=== PATIENT | female | born 1975 | race Caucasian/White ===

== ENCOUNTER 2023-06-20 17:01 | Inpatient (IN) ==
--- NOTE | 2023-06-20 17:22 | ED Triage Note ---
Date of Service June 20, 2023 Provider in Triage Author: Les Solo History of Present Illness This patient was briefly evaluated while in triage. An abbreviated physical exam was performed. This patient is a 48-year-old Female who presents to the ED for evaluation of abdominal pain. Concerned may have a gallbladder issue. Vomiting over the past few days. Pain epigastric region. Notes dark colored urine as well. Pain with a deep breath or sneezing. Physical Exam GENERAL: 48 year old female. In no acute distress. SKIN: No lesions or rashes. HEART: Regular rate and rhythm. LUNGS: Clear to auscultation. ABDOMEN: Bowel sounds normoactive. No guarding or rigidity. No tenderness of palpation. NEURO: Alert and oriented. No deficits. MUSCULOSKELETAL: No deformities to inspection of the extremities. PSYCH: Patient is pleasant and answers all questions appropriately. Initial orders for labs and / or imaging were placed and patient was placed in the waiting area until a bed is available. Please see further documentation for the full ED course.
[2023-06-20 18:21] LABS: Appearance Urine Clear (Clear); Bacteria Urine Automated Negative (Negative); Bilirubin Urine Negative (Negative); Blood Urine Negative (Negative); Cast Urine Automated 0 /lpf (0-5); Color Urine Yellow; Glucose Urine UA Negative (Negative); Ketones Urine Negative (Negative); Leukocyte Esterase Urine Trace (Negative); Nitrite Urine Negative (Negative); Protein Urine Negative (Negative); RBC Urine Automated 0-4 /hpf (0-4); Specific Gravity Urine 1.005 (1.000-1.030); Urobilinogen Urine Negative (Negative)
[2023-06-20 18:34] LABS: Basophils # (auto) 0.08 K/uL (0.00-0.20); Basophils % (auto) 0.8 %; Eosinophils # (auto) 0.26 K/uL (0.00-0.50); Eosinophils % (auto) 2.5 %; Hemoglobin 14.6 g/dl (12.0-16.0); Immature Granulocytes # (auto) 0.05 K/uL (0.01-0.20); Immature Granulocytes % (auto) 0.5 %; Lymphocytes # (auto) 3.77 K/uL (1.20-3.40); Lymphocytes % (auto) 35.9 %; Mean Corpuscular Hemoglobin 31.1 pg (25.0-34.0); Mean Corpuscular Hgb Conc 34.8 g/dL (32.0-36.0); Mean Corpuscular Volume 89.6 fL (80.0-100.0); Mean Platelet Volume 10.6 fL (9.4-12.4); Monocytes # (auto) 1.11 K/uL (0.11-0.59); Monocytes % (auto) 10.6 %; Neutrophils # (auto) 5.23 K/uL (1.40-6.50); Neutrophils % (auto) 49.7 %; Platelet Count 417 K/uL (130-400); RDW Coefficient of Variation 12.5 % (11.5-14.5); RDW Standard Deviation 40.8 fL (36.4-46.3); Red Blood Count 4.69 M/uL (4.20-5.40)
[2023-06-20 18:51] LABS: Alanine Aminotransferase 151 U/L (7-52); Albumin Globulin Ratio 1.2 (0.9-2); Albumin Level 4.2 gm/dl (3.4-5.0); Alkaline Phosphatase 178 U/L (34-104); Anion Gap 7 (3-11); Aspartate Aminotransferase 64 U/L (13-39); BUN Creatinine Ratio 15.7 (10-20); Blood Urea Nitrogen 11 mg/dl (6-23); Calcium 9.7 mg/dl (8.6-10.3); Carbon Dioxide 26 mmol/L (21-32); Chloride 104 mmol/L (98-107); Creatinine Clr Calc Pharmacy 112.2 ml/min; Est GFR (African American) 117.9 ml/min; Est GFR (Non-African American) 101.7 ml/min; Globulin 3.6 gm/dl (2.5-4.0); Glucose 92 mg/dl (70-99(Fasting)); Lipase 114 U/L (11-82); Potassium 4.1 mmol/L (3.5-5.1); Sodium 137 mmol/L (136-145); Total Protein 7.8 gm/dl (6.0-8.3)
[2023-06-20 18:52] LABS: Pregnancy Test, Serum Negative (Negative)
[2023-06-20 18:56] LABS: Troponin I High Sensitivity < 2.3 pg/ml (0-14)
--- NOTE | 2023-06-20 19:16 | XRay Report ---
SINGLE VIEW CHEST CLINICAL HISTORY: Epigastric abdominal pain. FINDINGS: A PA chest radiograph is obtained. No prior studies are available for comparison at the tana e of dictation. The cardiomediastinal silhouette is unremarkable. The lungs and pleural spaces are cl ear. No pneumothorax is seen. The bony thorax is grossly intact. IMPRESSION: No active disease in the chest. ACT 112: Negative or not required by law. Electronically signed by: Francis Song M.D. 06/20/2023 7:15 PM
--- NOTE | 2023-06-20 19:27 | Ultrasound Report ---
ULTRASOUND RIGHT UPPER QUADRANT ABDOMEN CLINICAL HISTORY: Epigastric abdominal pain. COMPARISON STUDY: No priors TECHNIQUE: Real-time, grayscale, and color flow sonography of the right upper quadrant of the abdomen was performed. Images are reviewed in the transverse and longitudinal planes. FINDINGS: Liver: The liver is normal in size and echotexture. There is no intrahepatic biliary ductal dilatatio n. The main portal vein is patent. Gallbladder: The gallbladder is mildly distended and filled with stones/sludge. The gallbladder wall appears thickened and mildly edematous measuring up to 4 mm. No pericholecystic fluid is seen. A sono graphic Matos's sign is reportedly absent. The common bile duct measures up to 0.2 cm in diameter. Pancreas: Visualized portions of the pancreatic head and body are normal in appearance. The splenic v ein is patent. Right kidney: Survey images of the right kidney demonstrate normal size and echotexture. There is no hydronephrosis. Ascites: None. IMPRESSION: Cholelithiasis and biliary sludge with findings suspicious for acute cholecystitis. Clini raul and laboratory correlation will be required. A nuclear hepatobiliary scan would be confirmatory ACT 112: Negative or not required by law. Electronically signed by: Francis Song M.D. 06/20/2023 7:25 PM
--- NOTE | 2023-06-20 20:10 | Emergency Department Note ---
ED Provider Note History of Present Illness Chief Complaint: Abdominal Pain Stated Complaint: VOMITING, ABDOMINAL PAIN, URINE ORANGE Time Seen by Provider: 06/20/23 19:15 This patient is a 48-year-old female who presents to the emergency department for evaluation of abdominal pain and vomiting. Her symptoms started 4 days ago. At that time, she had eaten haluski and then ice cream and afterward developed nausea and vomiting. The next day she again developed vomiting after eating something. She states yesterday, she had a Vincent and fries and developed symptoms after that. Symptoms are slightly more mild now but she states she has had vomiting and abdominal pain anytime she eats for the past 4 days. She reports a very strong family history of gallbladder disease and was concerned about this. Home Medications Medication Instructions Recorded Confirmed Type oxycodone 5 mg tablet 5 - 10 mg (1 - 2 x 5 mg) PO 06/22/23 Rx .[id number] PRN pain #15 tabs Allergies Allergy/AdvReac Type Severity Reaction Status Date / Time shellfish derived Allergy Severe HIVES, Unverified 06/20/23 20:40 VOMITING AND DIARRHEA latex Allergy Intermediate Rash Unverified 06/20/23 20:40 Past Med/Surg History Surgical History (Updated 06/22/23 @ 11:39 by Harper Lewis RN) Hx laparoscopic cholecystectomy (06/21/23) Laparoscopic Cholecystectomy - Melony Abdalla DO Social History Smoking Status: Former smoker Tobacco Type: Cigarettes and E-cigarettes / Vaping Second Hand Exposure: No; Do You Dip or Chew Tobacco: No; Hx Alcohol Use: Yes Alcohol type: wine Hx Substance Use: Yes Preferred Language: Urdu Communication Ability: Effective Visual Impairment: No Limitations Women[employer] 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 Feels Safe at Home: Yes Assistive Devices: None Physical Exam Vital Signs Vital Signs - 24 hr 06/20/23 17:25 06/20/23 19:21 06/20/23 19:21 Temperature 36.7 C 36.6 C Temperature Source Temporal Artery Scan Oral Pulse Rate 71 Pulse Rate [Finger] 68 Pulse Rhythm Regular Respiratory Rate 20 16 Respiratory Effort / Characteristics Non-Labored Spontaneous Non-Labored Respiratory Depth Normal Normal Respiratory Pattern Regular Blood Pressure 171/95 H Blood Pressure [Right Arm] 127/85 Blood Pressure Mean 120 Blood Pressure Mean [Right Arm] 99 Blood Pressure Position [Right Arm] Pulse Oximetry 97 98 98 Oxygen Delivery Method Room Air Room Air Sepsis Recent Fever Within 48 Hours No Sepsis New/Unexplained Change in Mental Status No Sepsis Action Taken by Nursing No Action Required 06/20/23 20:40 06/20/23 20:56 06/20/23 22:22 Temperature Temperature Source Pulse Rate Pulse Rate [Finger] Pulse Rhythm Respiratory Rate 18 Respiratory Effort / Characteristics Non-Labored Spontaneous Respiratory Depth Normal Respiratory Pattern Regular Blood Pressure Blood Pressure [Right Arm] 164/102 H 146/88 H 150/88 H Blood Pressure Mean Blood Pressure Mean [Right Arm] 122 107 108 Blood Pressure Position [Right Arm] Lying Pulse Oximetry 98 96 Oxygen Delivery Method Room Air Room Air Sepsis Recent Fever Within 48 Hours Sepsis New/Unexplained Change in Mental Status Sepsis Action Taken by Nursing 06/20/23 23:11 Temperature Temperature Source Pulse Rate 69 Pulse Rate [Finger] Pulse Rhythm Respiratory Rate 17 Respiratory Effort / Characteristics Respiratory Depth Respiratory Pattern Blood Pressure 138/70 Blood Pressure [Right Arm] Blood Pressure Mean 92 Blood Pressure Mean [Right Arm] Blood Pressure Position [Right Arm] Pulse Oximetry 96 Oxygen Delivery Method Room Air Sepsis Recent Fever Within 48 Hours Sepsis New/Unexplained Change in Mental Status Sepsis Action Taken by Nursing VITALS: Vitals are noted on the nurse's note and reviewed by myself. GENERAL: This is a 48-year-old female, in no acute distress, nondiaphoretic, well-developed well-nourished. SKIN: The skin was without rashes. EYES: No scleral icterus. HEART: Regular rate and rhythm without murmurs gallops or rubs. LUNGS: Clear to auscultation bilaterally without wheezes, rales or rhonchi. ABDOMEN: Positive bowel sounds x 4. Soft, mild tenderness in the epigastric region and right upper quadrant. No guarding or rebound tenderness. NEURO: Patient was alert and oriented to person place and time. Course Administered Medications Discontinued Medications Bupivacaine HCl (Bupivacaine 0.5 % 5 Mg/1 Ml Mpf 30ml Vial) Confirm Administered Dose 30 ml .ROUTE .[facility]-MED ONE Stop: 06/21/23 12:41 Last Admin: 06/21/23 14:15 Dose: 30 ml Documented By: [id number] Epinephrine HCl (Epinephrine Inj 1 Mg/Ml Amp) Confirm Administered Dose 1 mg .ROUTE .STK-MED ONE Stop: 06/21/23 12:41 Last Admin: 06/21/23 14:16 Dose: 0.15 mg Documented By: [id number] Hydromorphone HCl (Hydromorphone Inj 2 Mg/Ml Syr/Vial) 0.5 mg IV Q5M PRN PRN Reason: PACU Use Only-Pain Stop: 06/21/23 21:07 Last Admin: 06/21/23 15:11 Dose: 0.25 mg Documented By: Admin: 06/21/23 15:06 Dose: 0.25 mg Documented By: FERNANDA Sodium Chloride (Nss) 1,000 mls @ 999 mls/hr IV .Q1H1M ONE Stop: 06/20/23 21:43 Last Infusion: 06/20/23 22:59 Dose: Infused Documented By: Admin: 06/20/23 20:56 Dose: 999 mls/hr Documented By: SEAN Sodium Chloride (Nss) 1,000 mls @ 100 mls/hr IV .Q10H NICOLE Stop: 07/20/23 22:44 Last Infusion: 06/22/23 08:59 Dose: Infused Documented By: Admin: 06/21/23 23:35 Dose: 100 mls/hr Documented By: Infusion: 06/21/23 23:35 Dose: Infused Documented By: Admin: 06/21/23 16:36 Dose: 100 mls/hr Documented By: Infusion: 06/21/23 16:36 Dose: Infused Documented By: Infusion: 06/21/23 09:53 Dose: 100 mls/hr Documented By: AASalo Admin: 06/21/23 09:05 Dose: 200 mls/hr Documented By: Infusion: 06/21/23 08:31 Dose: Infused Documented By: Admin: 06/21/23 03:31 Dose: 200 mls/hr Documented By: Infusion: 06/21/23 03:31 Dose: Infused Documented By: Admin: 06/20/23 23:07 Dose: 200 mls/hr Documented By: OTTO Piperacillin Sod/Tazobactam (Sod 4.5 gm/ Dextrose) 100 mls @ 25 mls/hr IV Q8H [facility]; Protocol Stop: 07/01/23 03:59 Last Infusion: 06/23/23 08:21 Dose: Infused Documented By: Admin: 06/23/23 04:22 Dose: 25 mls/hr Documented By: Infusion: 06/23/23 00:57 Dose: Infused Documented By: Admin: 06/22/23 20:55 Dose: 25 mls/hr Documented By: Infusion: 06/22/23 16:59 Dose: Infused Documented By: Admin: 06/22/23 12:49 Dose: 25 mls/hr Documented By: Infusion: 06/22/23 07:49 Dose: Infused Documented By: Admin: 06/22/23 03:33 Dose: 25 mls/hr Documented By: Infusion: 06/21/23 23:36 Dose: Infused Documented By: Admin: 06/21/23 19:36 Dose: 25 mls/hr Documented By: Infusion: 06/21/23 16:00 Dose: Infused Documented By: Admin: 06/21/23 11:57 Dose: 25 mls/hr Documented By: Infusion: 06/21/23 09:05 Dose: Infused Documented By: Admin: 06/21/23 04:56 Dose: 25 mls/hr Documented By: MATTEO Piperacillin Sod/Tazobactam Sod (Zosyn) 4.5 gm in 100 mls @ 200 mls/hr IV NOW STA Stop: 06/20/23 23:11 Last Infusion: 06/21/23 00:03 Dose: Infused Documented By: Admin: 06/20/23 23:07 Dose: 200 mls/hr Documented By: OTTO Promethazine HCl 6.25 mg/ (Sodium Chloride) 50.25 mls @ 204 mls/hr IV ONCE PRN PRN Reason: PACU Use Only-Nausea/Vomiting Stop: 06/21/23 21:07 Last Infusion: 06/21/23 16:00 Dose: Infused Documented By: Admin: 06/21/23 14:59 Dose: 204 mls/hr Documented By: FERNANDA Ketorolac Tromethamine (Ketorolac Tromethamine 15 Mg/Ml Vial) 15 mg IV Q6H PRN PRN Reason: Pain Stop: 06/25/23 22:38 Last Admin: 06/23/23 12:02 Dose: 15 mg Documented By: Admin: 06/22/23 23:39 Dose: 15 mg Documented By: Admin: 06/22/23 17:48 Dose: 15 mg Documented By: Admin: 06/22/23 09:45 Dose: 15 mg Documented By: Admin: 06/21/23 16:44 Dose: 15 mg Documented By: CONNIE Ondansetron HCl (Ondansetron Inj 2 Mg/Ml 2 Ml Vial) 4 mg IV Q6H [facility] Stop: 07/21/23 15:59 Last Admin: 06/23/23 10:18 Dose: Not Given Documented By: Admin: 06/23/23 04:20 Dose: Not Given Documented By: Admin: 06/22/23 22:08 Dose: Not Given Documented By: Admin: 06/22/23 16:10 Dose: Not Given Documented By: Admin: 06/22/23 10:15 Dose: Not Given Documented By: Admin: 06/22/23 03:34 Dose: Not Given Documented By: Admin: 06/21/23 22:42 Dose: Not Given Documented By: Admin: 06/21/23 16:36 Dose: Not Given Documented By: CONNIE Oxycodone HCl (Oxycodone Hcl Ir 5 Mg Tab (Immediate Release)) 5 mg PO Q4H PRN PRN Reason: Moderate Pain (Scale 4, 5, 6) Stop: 07/05/23 15:54 Last Admin: 06/23/23 04:26 Dose: 5 mg Documented By: Admin: 06/22/23 00:46 Dose: 5 mg Documented By: Admin: 06/21/23 19:42 Dose: 5 mg Documented By: ROBERTO Promethazine HCl (Promethazine Hcl Inj 25 Mg/Ml 1 Ml Vial) Confirm Administered Dose 25 mg .ROUTE .STK-MED ONE Stop: 06/21/23 14:46 Last Admin: 06/21/23 15:57 Dose: Not Given Documented By: CONNIE Sodium Chloride (Sodium Chloride 0.9% 50 Ml Bag) Confirm Administered Dose 50 ml .ROUTE .STK-MED ONE Stop: 06/21/23 14:46 Last Admin: 06/21/23 16:00 Dose: Not Given Documented By: [facility] Medical Decision Making Differential Diagnosis Appendicitis, ovarian cyst, ovarian torsion, ectopic , TOA, PID, infections, diverticulitis, UTI, obstruction, mesenteric ischemia, aortic pathology, inflammatory bowel disease, renal colic, PUD, pancreatitis, biliary pathology, hernia, volvulus, constipation, as well as other pathologies. Laboratory Data Attestation: I reviewed the patient's lab results. 06/23/23 05:29 06/23/23 05:29 Lab Results 06/20/23 06/20/23 Range/Units 18:02 18:03 WBC 10.50 (4.8-10.8) K/ul RBC 4.69 (4.20-5.40) M/uL Hgb 14.6 (12.0-16.0) g/dl Hct 42.0 (37.0-47.0) % MCV 89.6 (80.0-100.0) fL MCH 31.1 (25.0-34.0) pg MCHC 34.8 (32.0-36.0) g/dL RDW Std Deviation 40.8 (36.4-46.3) fL RDW Coeff of Isabel 12.5 (11.5-14.5) % Plt Count 417 H (130-400) K/uL MPV 10.6 (9.4-12.4) fL Immature Gran % (Auto) 0.5 % Neut % (Auto) 49.7 % Lymph % (Auto) 35.9 % [place] % (Auto) 10.6 % Eos % (Auto) 2.5 % Baso % (Auto) 0.8 % Neut # (Auto) 5.23 (1.40-6.50) K/uL Lymph # (Auto) 3.77 H (1.20-3.40) K/uL [place] # (Auto) 1.11 H (0.11-0.59) K/uL Eos # (Auto) 0.26 (0.00-0.50) K/uL Baso # (Auto) 0.08 (0.00-0.20) K/uL Immature Gran # (Auto) 0.05 (0.01-0.20) K/uL Sodium 137 (136-145) mmol/L Potassium 4.1 (3.5-5.1) mmol/L Chloride 104 (98-107) mmol/L Carbon Dioxide 26 (21-32) mmol/L Anion Gap 7 (3-11) BUN 11 (6-23) mg/dl Creatinine 0.70 (0.6-1.2) mg/dl Est Cr Clr Drug Dosing 112.2 ml/min Est GFR ( Amer) 117.9 ml/min Est GFR (Non-Af Amer) 101.7 ml/min BUN/Creatinine Ratio 15.7 (10-20) Glucose 92 (70-99(Fasting)) mg/dl Calcium 9.7 (8.6-10.3) mg/dl Total Bilirubin 1.0 (0.2-1.0) mg/dl AST 64 H (13-39) U/L ALT 151 H (7-52) U/L Alkaline Phosphatase 178 H (34-104) U/L Troponin I High Sens < 2.3 (0-14) pg/ml Total Protein 7.8 (6.0-8.3) gm/dl Albumin 4.2 (3.4-5.0) gm/dl Globulin 3.6 (2.5-4.0) gm/dl Albumin/Globulin Ratio 1.2 (0.9-2) Lipase 114 H (11-82) U/L HCG, Qual Negative (Negative) Urine Color Yellow Urine Appearance Clear (Clear) Urine pH 6.0 (4.5-7.5) Ur Specific [place] 1.005 (1.000-1.030) Urine Protein Negative (Negative) Urine Glucose (UA) Negative (Negative) Urine Ketones Negative (Negative) Urine Blood Negative (Negative) Urine Nitrite Negative (Negative) Urine Bilirubin Negative (Negative) Urine Urobilinogen Negative (Negative) Ur Leukocyte Esterase Trace H (Negative) Urine WBC (Auto) 1-5 (0-5) /hpf Urine RBC (Auto) 0-4 (0-4) /hpf U Hyaline Cast (Auto) 0 (0-5) /lpf U Epithel Cells (Auto) 10-20 H (0-5) /lpf Urine Bacteria (Auto) Negative (Negative) Imaging Data Attestation: I personally reviewed and interpreted this imaging study as follows: Radiologist's Impression: Gallbladder Ultrasound 06/20/23 17:27 ULTRASOUND RIGHT UPPER QUADRANT ABDOMEN CLINICAL HISTORY: Epigastric abdominal pain. COMPARISON STUDY: No priors TECHNIQUE: Real-time, grayscale, and color flow sonography of the right upper quadrant of the abdomen was performed. Images are reviewed in the transverse and longitudinal planes. FINDINGS: Liver: The liver is normal in size and echotexture. There is no intrahepatic biliary ductal dilatation. The main portal vein is patent. Gallbladder: The gallbladder is mildly distended and filled with stones/sludge. The gallbladder wall appears thickened and mildly edematous measuring up to 4 mm. No pericholecystic fluid is seen. A sonographic Matos's sign is reportedly absent. The common bile duct measures up to 0.2 cm in diameter. Pancreas: Visualized portions of the pancreatic head and body are normal in appearance. The splenic vein is patent. Right kidney: Survey images of the right kidney demonstrate normal size and echotexture. There is no hydronephrosis. Ascites: None. IMPRESSION: Cholelithiasis and biliary sludge with findings suspicious for acute cholecystitis. Clinical and laboratory correlation will be required. A nuclear hepatobiliary scan would be confirmatory ACT 112: Negative or not required by law. Electronically signed by: Francis Song M.D. 06/20/2023 7:25 PM Chest X-Ray 06/20/23 17:28 SINGLE VIEW CHEST CLINICAL HISTORY: Epigastric abdominal pain. FINDINGS: A PA chest radiograph is obtained. No prior studies are available for comparison at the time of dictation. The cardiomediastinal silhouette is unremarkable. The lungs and pleural spaces are clear. No pneumothorax is seen. The bony thorax is grossly intact. IMPRESSION: No active disease in the chest. ACT 112: Negative or not required by law. Electronically signed by: Francis Song M.D. 06/20/2023 7:15 PM [facility] Narrative The patient is a 48-year-old female who presents today complaining of abdominal pain and vomiting x 4 days, exacerbated by eating. A right upper quadrant ultrasound was ordered in triage and showed evidence of acute cholecystitis. Patient's pain fairly mild at the time of my evaluation, declined any analgesics. She was given IV fluids. Discussed with general surgery, Mendez Eckert PA-C who did evaluate the patient. Given the elevation of lipase and transaminitis, they recommended medical admission to trend these labs and perform further imaging as indicated. Case was discussed with the [place] hospitalist service, who agreed to evaluate the patient for further care. Impression Acute cholecystitis, Pancreatitis Discharge Plan Visit Data Chief Complaint: Abdominal Pain Stated Complaint: VOMITING, ABDOMINAL PAIN, URINE ORANGE ED Provider: Greg Hooks ED Midlevel Provider: Elizabeth Wade Discharge Problem: Acute cholecystitis, Pancreatitis Patient Disposition: Admitted As Inpatient Discharge Instructions Interventions: ED Discharge Assessment Last Done: 06/20/23 23:33
[2023-06-20] MEDS: SODIUM CHLORIDE 0.9% 1,000 ML IV ONE (20:56)
--- NOTE | 2023-06-20 21:10 | Surgery Consultation ---
<Statement entered by Melony Abdalla DO - 06/21/23 03:32> I have discussed this case with the surgical PA, I agree with this plan Date of Consultation June 20, 2023 Assessment & Plan (1) Pancreatitis: I discussed with the treating clinician in the emergency department the patient is going to be admitted on the hospitalist service. From surgical respective we recommend the following: Provide analgesics Provide antiemetics Implement n.p.o. status Provide IV fluid for hydration Due to the potential for cholecystitis would recommend initiating antibiotics Follow serial labs As the patient's ultrasound is not entirely conclusive for cholecystitis we wi ll plan on getting a HIDA scan tomorrow morning. If the patient's LFTs and lipase are further elevated tomorrow we may consider enlisting the help of gastroenterology for potential ERCP or potentially ordering an MRCP which may negate the need for HIDA scan. This determination will be made based on her laboratory results tomorrow morning I did discuss with the patient that it is possible that she is suffering from gallstone pancreatitis which may necessitate a cholecystectomy to prevent future recurrence. I also did discuss with her that based on her repeat labs tomorrow morning we may need to enlist the help of gastroenterology as described above. Additional recommendations will be forthcoming based on her clinical course as unfolds and serial labs and studies as they are completed (2) Cholelithiasis: History of Present Illness Reason for Consultation: Abdominal pain History of Present Illness This is a 48-year-old female who presented to the emergency department secondary to abdominal pain. Patient notes that she has had 3 episodes of abdominal pain. The first episode started approximately 1 week ago and occurred several hours after eating a meal. Patient said that she had recurrence of her abdominal pain a few days later and actually had a third occurrence of her pain approximately 3 days ago. She notes that after the third occurrence of pain she simply has not returned to normal. I asked her where her pain was located she notes that his primary located in the epigastric area and as noted appears to be worse after eating usually several hours after doing so. She denies any fevers, shakes, or chills. She said that she has been having some loose bowel movements but specifically denies any hematochezia or bright blood per rectum. She has had some associated nausea and vomiting but denies any hematemesis. Prior to the patient's first episode of abdominal pain she specifically denies any postprandial pain in the weeks and months prior to this. She has had prior abdominal surgeries in the form of a tubal ligation. The patient notes that she leads an active lifestyle as she hikes several times per week. She says that she can easily walk a mile on a flat surface and can negotiate steps and inclines without any chest pain or shortness of breath. She does report that she quit smoking 2 weeks ago but does admit to smoking for 30 years up to 1 pack cigarettes per day. Since arrival to the hospital patient has had labs and imaging which I independent reviewed. Patient did have a chest x-ray that did not show any active disease or pneumonia. The patient has also had a gallbladder ultrasound. The gallbladder is mildly distended and is noted to have gallstones with sludge. The gallbladder wall is mildly edematous and thickened up to 4 mm. There is no pericholecystic fluid noted. Interpreting radiologist noted that this was suspicious for acute cholecystitis. Labs include a CBC were white blood cell count, hemoglobin and hematocrit were normal. Platelet count was 40 17,000. Chemistry profile showed sodium and potassium along with the BUN and creatinine were normal. Patient's total bilirubin was normal. Patient did have a slight elevation of her transaminases with an AST of 64 and an ALT of 151. Al kaline phosphatase is also slightly elevated at 178. Patient had a slight elevation of her lipase at 114. A test was negative. Urinalysis did show trace leukocyte Estrace but was otherwise not indicative of infection. At the time of my interview the patient was resting comfortably in bed and she was in no distress. Concerning past medical history the patient denies any medical problems Concerning past surgical history she has had a tubal ligation The patient reports that she is allergic to latex and certain shellfish The patient notes she does not take any medications Concerning social history she is a former smoker as stated above Concerning family history patient notes that several members of her family has suffered from gallbladder disease Allergies Allergy/AdvReac Type Severity Reaction Status Date / Time shellfish derived Allergy Severe HIVES, Unverified 06/20/23 20:40 VOMITING AND DIARRHEA latex Allergy Intermediate Rash Unverified 06/20/23 20:40 Home Medications Medication Instructions Recorded Confirmed Type No Known Home Medications 06/20/23 06/20/23 History Patient History Social History Smoking Status: Former smoker Feels Safe at Home: Yes Review of Systems Constitutional: no fever and no chills Ear, Nose, Mouth, Throat: no ear pain Respiratory: no cough and no dyspnea Cardiovascular: no chest pain Gastrointestinal: + abdominal pain, + nausea and + vomitin g Genitourinary: no dysuria Musculoskeletal: no back pain Neurologic: no localized weakness Physical Exam Constitutional: WD/WN, vitals as above Eyes: + anicteric sclerae ENMT: Ears: no hearing impairment and no external ear abnormality Mouth: no oropharynx abnormality Neck: trachea midline Respiratory: normal respiratory effort; no respiratory distress, no labored breathing and does not use accessory muscles Cardiovascular: Rate/Rhythm: regular rate and regular rhythm Vessels: dorsalis pedis pulses present and radial pulses present Gastrointestinal (Abdomen): Abdomen is soft and nondistended. There is no rebound tenderness or guarding. At the time of my exam the patient did have pain with deep palpation of the epigastric area. She did not have pain in the right upper quadrant at the time of my exam Musculoskeletal: No calf tender Skin: no rashes Neurologic: moves all extremities Results & Data Vital Signs (Past 12 Hours) Vital Signs Temp Pulse Pulse Resp BP BP Pulse Ox 06/20/23 20:56 146/88 H 06/20/23 20:40 164/102 H 98 06/20/23 19:21 98 06/20/23 19:21 36.6 C 68 16 127/85 98 06/20/23 17:25 36.7 C 71 20 171/95 H 97 O2 Del Method 06/20/23 20:56 06/20/23 20:40 Room Air 06/20/23 19:21 Room Air 06/20/23 19:21 Room Air 06/20/23 17:25 PG Care Time/CCT Total # of Minutes Spent Total Time Spent with Patient: Total time spent is greater than 50% in coordination of care (as documented) at patient's floor/unit and/or counseling patient: Coding Level of Care Code 54841 IN/OBS CONSULT LVL 5,80M Diagnoses Pancreatitis K85.90 Cholelithiasis K80.20
--- NOTE | 2023-06-20 22:38 | History & Physical Report ---
Date of Service June 20, 2023 Assessment & Plan (1) Cholelithiasis: Plan: 48yo Female without relevant PMH here for abd pain. Cholecystitis 2/2 cholelithiasis -WBC 10.5 -Lipase 114 -AST 64, ALT 151 -started NSS 200mls/h -started on zosyn -NPO midnight -surg consulted HIDA scan ordered concern pancreatitis FENa: NPO midnight Code Status: Full DVT PPX: ambulatory Dispo: med/surg Michelle Mckeon D.O. PGY 3, FCM (2) Pancreatitis: History of Present Illness Chief Complaint: Abd pain Primary Care Provider: NO PCP 48yo Female without relevant PMH here for abd pain. Patient states last monday she age ice cream and cabbage, felt like she got a 'stomach flu', vomitted overnight, felt better in the morning. On monday she ate lots of ice cream, overnight vomitted felt sick feverish chills, felt better in the morning, discarded the ice cream. On Monday ate a mary jo with [place] dressing became violently sick vomitting diarrhea. Since then she had a low fat diet and rested all weekend, monday noted tea colored urine and epigastric pain with deep inspiration, so came to ED today. In ED patient received 1L NSS, states it improved her abd pain from 8/10 to 3/10, only has mild RUQ pain with deep inspiration at this time, has an appetite. Patient denies ongoing N/V SOB fever. Allergies Allergy/AdvReac Type Severity Reaction Status Date / Time shellfish derived Allergy Severe HIVES, Unverified 06/20/23 20:40 VOMITING AND DIARRHEA latex Allergy Intermediate Rash Unverified 06/20/23 20:40 Home Medications Medication Instructions Recorded Confirmed Type No Known Home Medications 06/20/23 06/20/23 History Past Med/Surg History Social History Smoking Status: Former smoker Tobacco Type: Cigarettes and E-cigarettes / Vaping Second Hand Exposure: No; Do You Dip or Chew Tobacco: No; Tobacco Cessation Education Requested by Patient: No Hx Alcohol Use: Yes Alcohol type: wine Hx Substance Use: Yes Preferred Language: Kittitian Communication Ability: Effective 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 Other Information That Helps Us Care for You: No Feels Safe at Home: Yes Safety Concerns: Feels Safe At This Time Assistive Devices: None Physical Exam Constitutional: WD/WN, vitals as above Eyes: PERRL, conjunctivae normal, anicteric sclerae ENMT: external ear and nose normal, oropharynx normal Neck: trachea midline, no thyromegaly Respiratory: normal respiratory effort, lungs clear to auscultation Cardiovascular: RRR, no murmur, no edema Gastrointestinal (Abdomen): normal bowel sounds, soft, nontender, no hepatosplenomegaly Negative perez sign Skin: no rashes, warm and dry Results & Data Results & Data Vital Signs (Past 12 Hours) Vital Signs Temp Pulse Pulse Resp BP BP Pulse Ox 06/20/23 22:22 18 150/88 H 96 06/20/23 20:56 146/88 H 06/20/23 20:40 164/102 H 98 06/20/23 19:21 98 06/20/23 19:21 36.6 C 68 16 127/85 98 06/20/23 17:25 36.7 C 71 20 171/95 H 97 O2 Del Method 06/20/23 22:22 Room Air 06/20/23 20:56 06/20/23 20:40 Room Air 06/20/23 19:21 Room Air 06/20/23 19:21 Room Air 06/20/23 17:25 Supervising Physician Co-Signing Physician Notes Attending addendum: I have physically seen this patient, have supervised the medical residents activities, and agree with the H&P unless as otherwise noted. Assessment and Plan: Acute cholecystitis/possible gallstone pancreatitis- As suggested by abnormal LFTs and abnormal gallbladder ultrasound AST 64, ALT 151, alkaline phosphatase 178, lipase 114 General surgery has already seen the patient and ordered a HIDA scan Patient would likely benefit from MRCP to assess for possible common bile duct stone or sludge N.p.o. Zosyn 4.5 g IV every 8 hours NSS Follow serial CBC with differential, chemistry profile and lipase levels Resident Activity Tracking Resident Involvement: Resident Care Provided Care Provided: Adult [facility] Medicine
[2023-06-20] MEDS: SODIUM CHLORIDE 0.9% 1,000 ML IV SCH (23:07)
[2023-06-20] MEDS: PIPERACILLIN/TAZOBACTAM 4.5 GM/100 ML BAG IV STA (23:07)
--- NOTE | 2023-06-21 01:03 | Billing Data ---
Date of Service June 21, 2023 Coding Level of Care Code 35138 INT INP/OBS CARE
[2023-06-21] MEDS: PIPERACILLIN/TAZOBACTAM 4.5 GM in DEXTROSE 5% MINI-B 100 ML IV SCH (04:56)
[2023-06-21 06:19] LABS: Basophils # (auto) 0.05 K/uL (0.00-0.20); Basophils % (auto) 0.6 %; Eosinophils # (auto) 0.33 K/uL (0.00-0.50); Eosinophils % (auto) 4.1 %; Hematocrit (blood only) 36.8 % (37.0-47.0); Hemoglobin 12.6 g/dl (12.0-16.0); Immature Granulocytes # (auto) 0.03 K/uL (0.01-0.20); Immature Granulocytes % (auto) 0.4 %; Lymphocytes # (auto) 3.18 K/uL (1.20-3.40); Lymphocytes % (auto) 39.8 %; Mean Corpuscular Hgb Conc 34.2 g/dL (32.0-36.0); Mean Corpuscular Volume 90.6 fL (80.0-100.0); Mean Platelet Volume 10.2 fL (9.4-12.4); Monocytes # (auto) 0.93 K/uL (0.11-0.59); Monocytes % (auto) 11.7 %; Neutrophils # (auto) 3.46 K/uL (1.40-6.50); Neutrophils % (auto) 43.4 %; Platelet Count 315 K/uL (130-400); RDW Coefficient of Variation 12.3 % (11.5-14.5); RDW Standard Deviation 40.7 fL (36.4-46.3); Red Blood Count 4.06 M/uL (4.20-5.40); White Blood Count 7.98 K/ul (4.8-10.8)
[2023-06-21 06:41] LABS: Albumin Globulin Ratio 1.4 (0.9-2); Albumin Level 3.4 gm/dl (3.4-5.0); Calcium 8.1 mg/dl (8.6-10.3); Calcium 8.2 mg/dl (8.6-10.3); Creatinine Clr Calc Pharmacy 111.9 ml/min; Est GFR (African American) 118.5 ml/min; Est GFR (Non-African American) 102.2 ml/min; Globulin 2.5 gm/dl (2.5-4.0); Potassium 3.9 mmol/L (3.5-5.1); Total Protein 5.9 gm/dl (6.0-8.3)
--- NOTE | 2023-06-21 06:47 | Surgery Progress Note ---
Date of Service June 21, 2023 Assessment & Plan (1) Cholelithiasis: (2) Pancreatitis: (3) Transaminitis: Plan: May cancel HIDA. F/U this am labs. If transaminases and lipase are resolving, will plan for inpatient cholecystectomy today or tomorrow. If these studies are increasing, patient will need an MRCP. This has been discussed with the patient. Admission and Anticipated Discharge Date Admission Date: June 20, 2023 Subjective Patient seen this am. States pain is much improved and she has not had any pain medication since admission. Denies N/V. Describes pain was previously epigastric and then moved to her LUQ. Physical Exam Constitutional: healthy appearing; not ill appearing, not in distress and not diaphoretic Respiratory: normal respiratory effort; no respiratory distress, no labored breathing and does not use accessory muscles Cardiovascular: Rate/Rhythm: regular rate; not tachycardic Gastrointestinal (Abdomen): Inspection/Auscultation: abdomen not distended Percussion/Palpation: abdomen soft; abdomen nontender, no guarding and abdomen not rigid Results & Data Vital Signs (Past 12 Hours) Vital Signs Temp Pulse Pulse Resp BP BP Pulse Ox 06/20/23 23:40 36.5 C 71 16 154/89 H 97 06/20/23 23:11 69 17 138/70 96 06/20/23 22:22 18 150/88 H 96 06/20/23 20:56 146/88 H 06/20/23 20:40 164/102 H 98 06/20/23 19:21 98 06/20/23 19:21 36.6 C 68 16 127/85 98 O2 Del Method 06/20/23 23:40 Room Air 06/20/23 23:11 Room Air 06/20/23 22:22 Room Air 06/20/23 20:56 06/20/23 20:40 Room Air 06/20/23 19:21 Room Air 06/20/23 19:21 Room Air PG Care Time/CCT Total # of Minutes Spent Total Time Spent with Patient: Total time spent is greater than 50% in coordination of care (as documented) at patient's floor/unit and/or counseling patient: Coding Level of Care Code 83299 SUB INP/OBS CARE Diagnoses Cholelithiasis K80.20 Pancreatitis K85.90 Transaminitis R74.01
--- NOTE | 2023-06-21 10:25 | Electrocardiogram Report ---
Test Reason : Blood Pressure : / mmHG Vent. Rate : 080 BPM Atrial Rate : 080 BPM P-R Int : 152 ms QRS Dur : 058 ms QT Int : 388 ms P-R-T Axes : 074 030 043 degrees QTc Int : 447 ms Normal sinus rhythm Low voltage QRS Cannot rule out Anteroseptal infarct , age undetermined Abnormal ECG No previous ECGs available Confirmed by Tung Londono ([id number]) on 06/21/2023 10:25:22 AM Referred By: REFERRED SELF Confirmed By:Tung Londono
[2023-06-21] MEDS ORDERED: fentaNYL citrate PF 100 MCG/2 ML VIAL ONE ×2 (12:41→13:34)
[2023-06-21] MEDS ORDERED: PROPOFOL IV EMULSION 10 MG/ML 20 ML VIAL IV ONE (12:41)
[2023-06-21] MEDS ORDERED: LIDOCAINE 2% 2 ML VIAL/AMP(20MG/ML) INFIL ONE (12:41)
[2023-06-21] MEDS ORDERED: ONDANSETRON INJ 2 MG/ML 2 ML VIAL ONE (12:41)
[2023-06-21] MEDS ORDERED: ROCURONIUM BROMIDE 10 MG/ML 5 ML VIAL IV ONE (12:41)
[2023-06-21] MEDS ORDERED: DEXAMETHASONE SOD INJ 4 MG/ML VIAL ONE ×2 (12:41→13:28)
[2023-06-21] MEDS ORDERED: MIDAZOLAM HCL 1 MG/ML 2ML VIAL ONE (12:42)
[2023-06-21] MEDS ORDERED: ATROPINE SULFATE 0.1 MG/ML 10ML SYR IV PRN (13:06)
[2023-06-21] MEDS ORDERED: ePHEDrine sulfate 50 MG/ML AMP IV PRN (13:06)
--- NOTE | 2023-06-21 13:06 | Anesthesiology Consultation ---
Date of Service June 21, 2023 Assessment & Plan ASA ASA1 Proposed Anesthesia Anesthesia Type: General Risk / Benefits Reviewed With: PT / POA / Parent / Guardian, Accepts Plan and Informed Consent Obtained History Surgery Operation Date: 06/21/23 08:20 Proposed Procedures p Laparoscopic Cholecystectomy - Melony Abdalla, Height/Weight Height: 5 ft 6 in Weight: 90.718 kg Allergies Allergy/AdvReac Type Severity Reaction Status Date / Time shellfish derived Allergy Severe HIVES, Unverified 06/20/23 20:40 VOMITING AND DIARRHEA latex Allergy Intermediate Rash Unverified 06/20/23 20:40 Medications Home Medications Medication Instructions Recorded Confirmed Last Taken No Known Home Medications 06/20/23 06/20/23 Unknown Active Medications Generic Name Dose Route Start Last Admin Trade Name Freq PRN Reason Stop Dose Admin Sodium Chloride 1,000 mls @ 100 mls/hr 06/20/23 22:45 06/21/23 09:53 Nss IV 07/20/23 22:44 100 mls/hr .Q10H NICOLE Infusion Piperacillin Sod/Tazobactam 100 mls @ 25 mls/hr 06/21/23 04:00 06/21/23 11:57 Sod 4.5 gm/ Dextrose IV 07/01/23 03:59 25 mls/hr Q8H NICOLE Administration Protocol NPO Date Last Intake of Fluids: 06/20/23 Time Last Intake of Fluids: 22:00 Date Last Intake of Solids: 06/20/23 Time Last Intake of Solids: 22:00 Exercise / Class Metabolic Activity II 4-5 Yardwork/Stairs/Walk up hill Past Anesthesia History No Hx of Anesthesia Complications and No Family Hx of Anesthesia Complications History of PONV No Hx of PONV and No Hx of Motion Sickness Social History Smoking Status: Former smoker Do You Dip or Chew Tobacco: No Hx Alcohol Use: Yes Alcohol type: wine alcohol intake frequency: a few times a week Hx Substance Use: Yes substance use type: marijuana Physical Exam Vital Signs Last Vital Signs Temp 36.9 C 06/21/23 12:45 Pulse 66 06/21/23 12:45 Resp 20 06/21/23 12:45 BP 148/88 H 06/21/23 12:45 Pulse Ox 99 06/21/23 12:45 O2 Del Method Room Air 06/21/23 12:45 Constitutional no acute distress ENMT Mouth: no dentition abnormality Thyromental Distance: > or= 3.5 Finger Breadths Mallampati Class: III Neck normal visual inspection Respiratory normal respiratory effort; no respiratory distress Auscultation: lungs clear to auscultation bilaterally Cardiovascular Rate/Rhythm: regular rate and regular rhythm Heart Sounds: no murmur Musculoskeletal Spine: normal cervical ROM Psychiatric Orientation: alert and oriented x 3 Testing Laboratory Results 06/21/23 06:06 06/21/23 06:06 Urine Color Yellow 06/20/23 18:02 Urine Appearance Clear (Clear) 06/20/23 18:02 Urine pH 6.0 (4.5-7.5) 06/20/23 18:02 Ur Specific Haw[place] 1.005 (1.000-1.030) 06/20/23 18:02 Urine Protein Negative (Negative) 06/20/23 18:02 Urine Glucose (UA) Negative (Negative) 06/20/23 18:02 Urine Ketones Negative (Negative) 06/20/23 18:02 Urine Nitrite Negative (Negative) 06/20/23 18:02 Ur Leukocyte Esterase Trace (Negative) H 06/20/23 18:02 Urine WBC (Auto) 1-5 /hpf (0-5) 06/20/23 18:02 Urine RBC (Auto) 0-4 /hpf (0-4) 06/20/23 18:02 U Hyaline Cast (Auto) 0 /lpf (0-5) 06/20/23 18:02 U Epithel Cells (Auto) 10-20 /lpf (0-5) H 06/20/23 18:02 Urine Bacteria (Auto) Negative (Negative) 06/20/23 18:02 Day of Procedure Evaluation. Date of Surgery June 21, 2023 Height/Weight Height: 5 ft 6 in Weight: 90.718 kg Vital Signs Last Vital Signs Temp 36.9 C 06/21/23 12:45 Pulse 66 06/21/23 12:45 Resp 20 06/21/23 12:45 BP 148/88 H 06/21/23 12:45 Pulse Ox 99 06/21/23 12:45 O2 Del Method Room Air 06/21/23 12:45 Allergies Allergy/AdvReac Type Severity Reaction Status Date / Time shellfish derived Allergy Severe HIVES, Unverified 06/20/23 20:40 VOMITING AND DIARRHEA latex Allergy Intermediate Rash Unverified 06/20/23 20:40 Medications Home Medications Medication Instructions Recorded Confirmed Last Taken No Known Home Medications 06/20/23 06/20/23 Unknown Active Medications Generic Name Dose Route Start Last Admin Trade Name Freq PRN Reason Stop Dose Admin Sodium Chloride 1,000 mls @ 100 mls/hr 06/20/23 22:45 06/21/23 09:53 Nss IV 07/20/23 22:44 100 mls/hr .Q10H NICOLE Infusion Piperacillin Sod/Tazobactam 100 mls @ 25 mls/hr 06/21/23 04:00 06/21/23 11:57 Sod 4.5 gm/ Dextrose IV 07/01/23 03:59 25 mls/hr Q8H NICOLE Administration Protocol Past Anesthesia History No Hx of Anesthesia Complications and No Family Hx of Anesthesia Complications History of PONV No Hx of PONV and No Hx of Motion Sickness NPO Date Last Intake of Fluids: 06/20/23 Time Last Intake of Fluids: 22:00 Date Last Intake of Solids: 06/20/23 Time Last Intake of Solids: 22:00 Home Medications Home Medications Medication Instructions Recorded Confirmed Last Taken No Known Home Medications 06/20/23 06/20/23 Unknown Active Medications Generic Name Dose Route Start Last Admin Trade Name Freq PRN Reason Stop Dose Admin Sodium Chloride 1,000 mls @ 100 mls/hr 06/20/23 22:45 06/21/23 09:53 Nss IV 07/20/23 22:44 100 mls/hr .Q10H NICOLE Infusion Piperacillin Sod/Tazobactam 100 mls @ 25 mls/hr 06/21/23 04:00 06/21/23 11:57 Sod 4.5 gm/ Dextrose IV 07/01/23 03:59 25 mls/hr Q8H NICOLE Administration Protocol Exercise / Class Metabolic Activity Metabolic Activity: II 4-5 Yardwork/Stairs/Walk up hill Physical Exam Constitutional: no acute distress Mouth: no dentition abnormality Thyromental Distance: > or= 3.5 Finger Breadths Mallampati Class: III Neck: + visual inspection normal Respiratory: + respiratory effort normal and + clear to auscultation bilaterally; no respiratory distress Cardiovascular: + regular rate and + regular rhythm; no murmur Musculoskeletal: no limited cervical ROM Psychiatric: + alert and + oriented x 3 ASA ASA1 Proposed Anesthesia Proposed Anesthesia: General Risk / Benefits Reviewed With: PT / POA / Parent / Guardian, Accepts Plan and Informed Consent Obtained
[2023-06-21] MEDS ORDERED: SUGAMMADEX SODIUM 200 MG/2 ML VIAL IV ONE (14:12)
[2023-06-21] MEDS: BUPIVACAINE 0.5 % 5 MG/1 ML MPF 30ML VIAL ONE (14:15)
[2023-06-21] MEDS: EPINEPHrine INJ 1 MG/ML AMP ONE (14:16)
--- NOTE | 2023-06-21 14:37 | Operative Report ---
PG Post Operative Report Pre & Post Diagnosis Operation Date: 06/21/23 08:20 Pre-Op Diagnosis: Cholecystitis. Post-Op Diagnosis: Cholecystitis. I identified the patient and participated in the time-out.: Yes Procedure Operation Date: 06/21/23 08:20 Actual Procedures p Laparoscopic Cholecystectomy - Melony Abdalla DO Surgeon Melony Abdalla DO Deputy Treasurer CRISTIAN Monterroso Estimated Blood Loss 5 Findings Consistent with Post-Op Diagnosis Specimens Gallbladder Drains None Anesthesia Type General Complications None Indications acute symptomatic biliary colic with transient transaminitis Description of Procedure The patient was brought back to the operating room and placed on the operating room table in supine position. SCDs were applied to bilateral lower extremities. She was connected to cardiac and oxygen monitoring supplemental O2 was administered. The patient was administered general anesthesia and a secure airway was obtained. The abdomen was prepped and draped in typical sterile fashion and a timeout was conducted. Local anesthetic was injected into the skin and subcutaneous tissues just. To the umbilicus and a small stab incision was made with an 11 blade. A Veress needle was used to gain intra-abdominal access and established pneumoperitoneum typical pressure 15 mmHg. A 5 mm trocar was inserted using direct visualization with a 5 mm Visiport and laparoscope. Local anesthetic was injected into the skin and subcutaneous tissues at the epigastric area and an incision was made large enough to insert an 11 mm trocar which was inserted under direct visualization. After injecting local anesthetic, 2 additional 5 mm trocars were inserted under direct visualization along the right subcostal border. No entry identified to intra-abdominal structures during Veress needle placements or the trocar placements. The fundus of the gallbladder was grasped and retracted superiorly, the infundibulum was grasped and retracted laterally. Cystic duct and artery were both exposed. Two 5 mm clips were applied proximally on the artery three 5 mm clips were applied proximally on the duct. Two 5 mm clips were applied distally on the cystic duct as the neck of the gallbladder was thickened and had contained a stone. 1 clip was placed proximally on the cystic artery these 2 structures were transected using endoscopic next alix. Dissection of the gallbladder away from the liver bed using cautery was undertaken. Fatty, loose tissue connecting to the gallbladder was suspicious for harboring potentially an accessory arterial branch was clipped with two 5 mm clips proximally 1 distally. This was also transected. The gallbladder was removed away from the liver plan patient Endo Catch bag sent to in a labeled container to pathology for further analysis. The liver bed was inspected for hemostasis which was achieved using cautery. The area was copiously irrigated with normal saline and suction. Hemostasis was checked for multiple times and cautery was used to control some mild oozing of the liver bed. Instruments were removed, pneumoperitoneum was evacuated. All trocars were removed. The fascia at the epigastric incision was closed with 0 Vicryl suture. The dermis was reapproximated with Vicryl suture and all 4 incisions were sealed with Dermabond. The patient tolerated the procedure well, she was awakened from anesthesia, the secure airway was removed and the patient was transferred to recovery in stable condition. I attest to the content of the Intraoperative Record and any orders documented therein. Any exceptions are noted below.
[2023-06-21] MEDS: PROMETHAZINE HCL 6.25 MG in SODIUM CHLORIDE 0.9% 50 ML IV PRN (14:59)
[2023-06-21] MEDS: HYDROmorphone INJ 2 MG/ML SYR/VIAL IV PRN (15:06)
--- NOTE | 2023-06-21 15:30 | Anesthesiology Progress Note ---
Date of Service June 21, 2023 Anesthesia Post Procedure Vital Signs Vital Signs: Temp Pulse Pulse Pulse Resp BP BP 06/21/23 15:20 71 12 126/69 06/21/23 15:10 76 14 119/85 06/21/23 15:00 75 18 138/76 06/21/23 14:50 75 18 132/66 06/21/23 14:40 72 16 124/77 06/21/23 14:32 97.0 F L 75 18 140/78 06/21/23 12:45 98.4 F 66 20 148/88 H 06/21/23 07:25 98.1 F 69 16 130/84 06/20/23 23:40 97.7 F 71 16 154/89 H 06/20/23 23:11 69 17 138/70 06/20/23 22:22 18 150/88 H 06/20/23 20:56 146/88 H 06/20/23 20:40 164/102 H 06/20/23 19:21 06/20/23 19:21 97.9 F 68 16 127/85 06/20/23 17:25 98.1 F 71 20 171/95 H Pulse Ox O2 Del Method 06/21/23 15:20 95 Room Air 06/21/23 15:10 96 Room Air 06/21/23 15:00 99 Room Air 06/21/23 14:50 97 Room Air 06/21/23 14:40 98 Room Air 06/21/23 14:32 98 Room Air 06/21/23 12:45 99 Room Air 06/21/23 07:25 98 Room Air 06/20/23 23:40 97 Room Air 06/20/23 23:11 96 Room Air 06/20/23 22:22 96 Room Air 06/20/23 20:56 06/20/23 20:40 98 Room Air 06/20/23 19:21 98 Room Air 06/20/23 19:21 98 Room Air 06/20/23 17:25 97 Pain Intensity Abdomen: Pain Intensity: 4 Transfer of Care Handoff Completed per policy Notes Mental Status: alert / awake / arousable and participated in evaluation Patient Amnestic to Procedure: Yes Nausea / Vomiting: adequately controlled Pain: adequately controlled Airway Patency, RR, SpO2: stable & adequate BP & HR: stable & adequate Hydration State: stable & adequate Anesthetic Complications: no major complications apparent and Pt Satisfied with anesthetic care
[2023-06-21] MEDS ORDERED: MoRPHine SULFATE 4 MG/ML 1 ML CARP\\VIAL IV PRN (15:55)
[2023-06-21] MEDS ORDERED: MoRPHine SULFATE 2 MG/ML CARP IV PRN (15:55)
[2023-06-21] MEDS ORDERED: oxyCODONE HCL IR 5 MG TAB (IMMEDIATE RELEASE) PO PRN (15:55)
[2023-06-21] MEDS: PROMETHAZINE HCL INJ 25 MG/ML 1 ML VIAL ONE (15:57)
[2023-06-21] MEDS: SODIUM CHLORIDE 0.9% 50 ML BAG ONE (16:00)
[2023-06-21] MEDS: ONDANSETRON INJ 2 MG/ML 2 ML VIAL IV SCH (16:36)
[2023-06-21] MEDS: KETOROLAC TROMETHAMINE 15 MG/ML VIAL IV PRN (16:44)
--- NOTE | 2023-06-21 16:57 | Hospitalist Progress Note ---
Date of Service June 21, 2023 Assessment & Plan (1) Cholelithiasis: Plan: - acute cholecystitis / cholelithiasis - general surgery consulted - Plan for laparoscopic cholecystomy 06/[address] Upton-Sameer - HIDA scan canceled - Pain control prn oxycodone, toradol, morphine -LFTS down trending -Lipase 114 --> 64 -Continue zosyn (2) Pancreatitis: Plan: Lipase improving Plan Dispo: continued inpatient stay Dvt proh: encourage ambulation Admission and Anticipated Discharge Date Admission Date: June 20, 2023 Supervising Physician Co-Signing Physician Notes Attending Attestation - Chart reviewed, care plan d/w CRISTIAN Bermeo. I agree with the rodriguez components of her documentation. Appreciate general surgery assistance. Cirilo Delgadillo MD Subjective Patient seen resting in bed, shortly after arriving back from the PACU. Currently eating ice chips without issue. Reports pain to her abdominal sites. Review of Systems Review of Systems: All systems reviewed & are unremarkable except as noted in Subjective Physical Exam Physical Exam: no acute distres breathing unlabored abdominal binder in place no LE edema Results & Data Results & Data Vital Signs (Past 12 Hours) Vital Signs Temp Pulse Pulse Resp BP Pulse Ox O2 Del Method 06/21/23 16:27 36.4 C L 69 16 119/79 97 Room Air 06/21/23 15:57 36.4 C L 66 14 127/78 97 Room Air 06/21/23 15:30 73 18 128/78 96 Room Air 06/21/23 15:20 71 12 126/69 95 Room Air 06/21/23 15:10 76 14 119/85 96 Room Air 06/21/23 15:00 75 18 138/76 99 Room Air 06/21/23 14:50 75 18 132/66 97 Room Air 06/21/23 14:40 72 16 124/77 98 Room Air 06/21/23 14:32 36.1 C L 75 18 140/78 98 Room Air 06/21/23 12:45 36.9 C 66 20 148/88 H 99 Room Air 06/21/23 07:25 36.7 C 69 16 130/84 98 Room Air Laboratory Results CBC, chemistry and lipase reviewed PG Care Time/CCT Total # of Minutes Spent Total Time Spent with Patient: Total time spent is greater than 50% in coordination of care (as documented) at patient's floor/unit and/or counseling patient: Coding Level of Care Code 12035 SUB INP/OBS CARE Diagnoses Cholelithiasis K80.20 Pancreatitis K85.90
[2023-06-21] MEDS: oxyCODONE HCL IR 5 MG TAB (IMMEDIATE RELEASE) PO PRN (19:42)
[2023-06-22] MEDS ORDERED: ACETAMINOPHEN 325 MG TAB PO PRN (07:12)
--- NOTE | 2023-06-22 07:37 | Surgery Progress Note ---
<Statement entered by Melony Abdalla, DO - 06/23/23 19:33> I had seen and examined this patient with the surgical PA and agreed with this plan Date of Service June 22, 2023 Assessment & Plan (1) Cholelithiasis: Plan: addendum: Am labs came back, WBC 14, LFT remain same patient would likely benefit from staying another day and recheck labs in AM POD 1 lap roly Doing well tolerating diet , low fat passing flatus pain controlled with PO meds wishes to go home, labs not drawn this AM yet VSS ambulating without difficulty will watch for AM labs if downtrending LFTs and WBC wnl ok for d/c from surgical stand point Pt to f/u with Dr. Abdalla o/p in 2 weeks Pain medication sent to pharmacy No heavy lifting for 2 weeks no driving while taking narcotics. Admission and Anticipated Discharge Date Admission Date: June 20, 2023 Subjective pt reports feeling well no pain tolerating low fat diet passing flatus Review of Systems Constitutional: no fever and no chills Respiratory: no dyspnea Cardiovascular: no chest pain Gastrointestinal: no abdominal pain, no nausea and no vomiting Genitourinary: no dysuria Musculoskeletal: no muscle weakness Integumentary: no rash Physical Exam Physical Exam: alert oriented Constitutional: cooperative and comfortable; no acute distress Respiratory: normal respiratory effort and able to speak in complete sentences; no respiratory distress Cardiovascular: Rate/Rhythm: regular rate Gastrointestinal (Abdomen): Inspection/Auscultation: + abdominal surgical incision (dermabond CDI no s/s of infection ); abdomen not distended Percussion/Palpation: abdomen soft Musculoskeletal: no cyanosis or clubbing, extremities motor strength 5/5 Skin: no rashes, warm and dry Results & Data Vital Signs (Past 12 Hours) Vital Signs Temp Pulse Resp BP Pulse Ox O2 Del Method 06/22/23 03:36 97.9 F 62 16 124/83 97 Room Air 06/21/23 23:44 98.1 F 60 16 129/80 96 Room Air 06/21/23 19:56 98.1 F 74 16 144/89 H 96 Room Air PG Care Time/CCT Total # of Minutes Spent Total Time Spent with Patient: Total time spent is greater than 50% in coordination of care (as documented) at patient's floor/unit and/or counseling patient: Coding Level of Care Code 62723 Post Operative Follow-Up Diagnoses Cholelithiasis K80.20
[2023-06-22 08:08] LABS: Basophils # (auto) 0.03 K/uL (0.00-0.20); Basophils % (auto) 0.2 %; Eosinophils # (auto) 0.01 K/uL (0.00-0.50); Eosinophils % (auto) 0.1 %; Hematocrit (blood only) 35.7 % (37.0-47.0); Hemoglobin 12.3 g/dl (12.0-16.0); Immature Granulocytes # (auto) 0.04 K/uL (0.01-0.20); Immature Granulocytes % (auto) 0.3 %; Lymphocytes # (auto) 2.35 K/uL (1.20-3.40); Lymphocytes % (auto) 16.2 %; Mean Corpuscular Hemoglobin 31.2 pg (25.0-34.0); Mean Corpuscular Hgb Conc 34.5 g/dL (32.0-36.0); Mean Corpuscular Volume 90.6 fL (80.0-100.0); Mean Platelet Volume 10.6 fL (9.4-12.4); Monocytes # (auto) 1.14 K/uL (0.11-0.59); Monocytes % (auto) 7.9 %; Neutrophils # (auto) 10.93 K/uL (1.40-6.50); Neutrophils % (auto) 75.3 %; Platelet Count 336 K/uL (130-400); RDW Coefficient of Variation 12.6 % (11.5-14.5); RDW Standard Deviation 41.1 fL (36.4-46.3); Red Blood Count 3.94 M/uL (4.20-5.40)
[2023-06-22 08:30] LABS: Albumin Globulin Ratio 1.4 (0.9-2); Albumin Level 3.6 gm/dl (3.4-5.0); BUN Creatinine Ratio 7.8 (10-20); Bilirubin,Total 0.8 mg/dl (0.2-1.0); Calcium 8.2 mg/dl (8.6-10.3); Creatinine Clr Calc Pharmacy 120.6 ml/min; Est GFR (African American) 121.4 ml/min; Est GFR (Non-African American) 104.8 ml/min; Globulin 2.5 gm/dl (2.5-4.0); Total Protein 6.1 gm/dl (6.0-8.3)
--- NOTE | 2023-06-22 12:53 | Hospitalist Progress Note ---
Date of Service June 22, 2023 Assessment & Plan (1) Cholelithiasis: Plan: - acute cholecystitis 05/26 cholelithiasis - general surgery consulted - s/p laparoscopic cholecystomy 06/[address] Abdalla - HIDA scan canceled - continue low fat diet - Pain control prn oxycodone, toradol, morphine -LFTS essentially the same, slight increase in AST 45--> 56 -Continue zosyn WBC 14 likely reactive to steroids from OR (2) Pancreatitis: Plan: Lipase improving Plan Dispo: continued inpatient stay, hopeful for discharge tomorrow pending LFTs Dvt proh: encourage ambulation Admission and Anticipated Discharge Date Admission Date: June 20, 2023 Supervising Physician Co-Signing Physician Notes Attending Attestation - Chart reviewed, care plan d/w CRISTIAN Bermeo. I agree with the rodriguez components of her documentation. Appreciate general surgery assistance. s/p lap roly yesterday. LFTs noted. Trend. Cirilo Delgadillo MD Subjective patient resting in bed, just finished lunch without issue. passing gas, no BM yet. Has been ambulating in the halls notified about increase LFTs Review of Systems Review of Systems: All systems reviewed & are unremarkable except as noted in Subjective Physical Exam Physical Exam: General: NAD, pleasant, VS as above Resp: normal respiratory effort, lungs clear to auscultation CV: RRR, no murmur, Abd: abdominal binder in place, incsions without signs of infection, , non tender, Extremities: Moves all extremities, no edema Neuro: A&O x3, \ Results & Data Results & Data Vital Signs (Past 12 Hours) Vital Signs Temp Pulse Resp BP Pulse Ox O2 Del Method 06/22/23 11:18 36.5 C 78 16 136/82 98 Room Air 06/22/23 07:41 36.4 C L 71 16 111/67 98 Room Air 06/22/23 03:36 36.6 C 62 16 124/83 97 Room Air Laboratory Results CBC and CMP reviewed PG Care Time/CCT Total # of Minutes Spent Total Time Spent with Patient: Total time spent is greater than 50% in coordination of care (as documented) at patient's floor/unit and/or counseling patient: Coding Level of Care Code 47146 SUB INP/OBS CARE 2/35MIN Diagnoses Cholelithiasis K80.20 Pancreatitis K85.90
[2023-06-23 05:45] LABS: Basophils # (auto) 0.05 K/uL (0.00-0.20); Basophils % (auto) 0.5 %; Eosinophils # (auto) 0.16 K/uL (0.00-0.50); Eosinophils % (auto) 1.8 %; Hemoglobin 11.7 g/dl (12.0-16.0); Immature Granulocytes # (auto) 0.02 K/uL (0.01-0.20); Immature Granulocytes % (auto) 0.2 %; Lymphocytes # (auto) 3.84 K/uL (1.20-3.40); Lymphocytes % (auto) 42.2 %; Mean Corpuscular Hemoglobin 31.5 pg (25.0-34.0); Mean Corpuscular Hgb Conc 34.4 g/dL (32.0-36.0); Mean Corpuscular Volume 91.4 fL (80.0-100.0); Mean Platelet Volume 10.5 fL (9.4-12.4); Monocytes # (auto) 0.64 K/uL (0.11-0.59); Neutrophils # (auto) 4.39 K/uL (1.40-6.50); Neutrophils % (auto) 48.3 %; Platelet Count 311 K/uL (130-400); RDW Coefficient of Variation 12.7 % (11.5-14.5); RDW Standard Deviation 42.1 fL (36.4-46.3); Red Blood Count 3.72 M/uL (4.20-5.40)
[2023-06-23 06:02] LABS: Albumin Globulin Ratio 1.4 (0.9-2); Albumin Level 3.6 gm/dl (3.4-5.0); BUN Creatinine Ratio 12.1 (10-20); Bilirubin,Total 0.7 mg/dl (0.2-1.0); Calcium 8.3 mg/dl (8.6-10.3); Creatinine Clr Calc Pharmacy 84.8 ml/min; Est GFR (African American) 85.9 ml/min; Est GFR (Non-African American) 74.1 ml/min; Globulin 2.6 gm/dl (2.5-4.0); Potassium 3.8 mmol/L (3.5-5.1); Total Protein 6.2 gm/dl (6.0-8.3)
--- NOTE | 2023-06-23 11:50 | Discharge Summary ---
Discharge Summary Date of Service June 23, 2023 Notes For Next Care Provider Gallbladder removed 06/21, pt recovering well. Declined zofran rx at discharge Medication Changes From Visit prn oxycodone for pain Admission HPI Per Admitting Provider 48yo Female without relevant PMH here for abd pain. Patient states last monday she age ice cream and cabbage, felt like she got a 'stomach flu', vomitted overnight, felt better in the morning. On monday she ate lots of ice cream, overnight vomitted felt sick feverish chills, felt better in the morning, dis carded the ice cream. On Monday ate a mary jo with [place] dressing became violently sick vomitting diarrhea. Since then she had a low fat diet and rested all weekend, monday noted tea colored urine and epigastric pain with deep inspiration, so came to ED today. In ED patient received 1L NSS, states it improved her abd pain from 8/10 to 3/10, only has mild RUQ pain with deep inspiration at this time, has an appetite. Patient denies ongoing N/V SOB fever. Principal Dx & Hospital Course #1 = Principal Diagnosis (1) Cholelithiasis: - acute cholecystitis 05/26 cholelithiasis - general surgery consulted - s/p laparoscopic cholecystomy 06/[address] Abdalla - continue low fat diet - Pain control prn oxycodone and OTC tylenol at discharge -LFTS improving -Recieved zosyn will inpatient. abx not continued at discharge WBC 14 likely reactive to steroids from OR --> improved day of discharge (2) Pancreatitis: Lipase improving Plan Dispo: discharge to home Discharge Exam General: NAD, pleasant, VS as above Resp: normal respiratory effort, lungs clear to auscultation CV: RRR, no murmur, Abd: abdominal binder in place,, non tender, Neuro: A&O x3, Updated Medication List Medication Instructions Recorded Confirmed Type oxycodone 5 mg tablet 5 - 10 mg (1 - 2 x 5 mg) PO 06/22/23 Rx .[id number] PRN pain #15 tabs Hospital Stay Data Consultations 06/20/23 21:38 Consult General Surgery Stat Procedures Performed Operation Date: 06/21/23 08:20 Actual Procedures p Laparoscopic Cholecystectomy - Melony Abdalla, Diagnostic Imagining Performed 06/20/23 17:27 US gallbladder Stat Pending Results Patient Have Any Pending Studies at Discharge: Yes Discharge Instructions Given to Patient (Per Discharging Provider) You have skin glue over your incisions called dermabond. you may shower with this on. It will tend to dissolve and fall off within a couple weeks. Do not pick at the skin glue You may purchase Tylenol and/or Ibuprofen over the counter if needed for additional pain control over the next few days. Take per manufacturers instructions Would recommend that you get established with a local primary care provider. Total Time Total Time Spent Total Time Spent (In Minutes): 20 Supervising Physician Co-Signing Physician Notes Attending Attestation and Discharge Note: Pt seen/examined, chart reviewed, discharge care plan d/w CRISTIAN Bermeo. I agree with the rodriguez components of her discharge documentation. 48 yo female presented with symptoms, signs, and radiographic evidence of acute cholecystitis. LFTs were elevated while here, and lipase was minimally elevated at 114. Seen by general surgery and on 06/21 underwent lap roly. Her surgery went well and without complication. Post-op started on clear liquid diet & this was advanced. Pain was largely controlled by time of discharge. Low fat diet was recommended at discharge. Discharge exam: gen - NAD, looks well eyes - no icterus mouth - MMM heart - RRR, s1 s2, no murmur lungs - CTA b/l abd - mildly distended, BS+, abd wall incisions c/d/i, no HSM, appropriate incisional tenderness only, no peritoneal signs ext - no edema, pulses 2+ b/l She will need f/u with Dr Upton from gen surg post-discharge for recheck. Cirilo Delgadillo MD Coding Level of Care Code 66225 IN/OBS DISCH 30 MIN/LESS Diagnoses Cholelithiasis K80.20 Pancreatitis K85.90
== END 2023-06-23 12:32 | disposition home or self-care (01) | DRG 417 ==
LOC: ED 17:01 → SUATTDRO 22:35 → 3W 22:35